=== PATIENT | male | born 1960 | race African-American/Black ===

== ENCOUNTER 2017-12-02 08:13 | Emergency (ER) | payer OTHER ==
[~2017-12-02] VITALS: Ht 172.7 cm; Wt 74.8 kg
--- NOTE | 2017-12-02 08:34 | Emergency Room Report ---
History of Present Illness General Chief Complaint: Headache Source: Patient Present Illness HPI Patient is a 57-year-old male presented after increased headache gradual onset over the past few days. Patient was recently losing his job. The patient been previously followed by [facility]. The patient reports having prior history of hypertension. He denied any fever. Patient stated that he had not been taking any medications. He denies any numbness or weakness. He denies any weight loss. Patient stated he had been feeling somewhat dizzy. The patient is a smoker Allergies: Coded Allergies: No Known Allergies (Unverified , 12/02/17) Patient History Past Medical History: see triage record Reviewed Nursing Documentation: PMH: Agreed, PSxH: Agreed Nursing Documentation-PMH Past Medical History: No Stated History Review of Systems All Other Systems: negative except mentioned in HPI Physical Exam Vital Signs Date Time Temp Pulse Resp B/P (MAP) Pulse Ox O2 Delivery O2 Flow Rate FiO2 12/02/17 08:16 97.9 75 18 148/97 98 Room Air 97.9 Sp02 EP Interpretation: reviewed, normal General Appearance: normal inspection, well appearing, no apparent distress, alert, GCS 15 Head: atraumatic ENT: normal ENT inspection, hearing grossly normal, normal voice Neck: normal inspection, full range of motion, supple, no bony tend Respiratory: normal inspection, lungs clear, normal breath sounds, no respiratory distress, no retraction, no wheezing Cardiovascular #1: regular rate, rhythm, no edema Gastrointestinal: normal inspection, normal bowel sounds, non tender, soft, no guarding, no hernia Genitourinary: no CVA tenderness Musculoskeletal: normal inspection, back normal, normal range of motion Neurologic: normal inspection, alert, oriented x3, responsive, metal framer III-XII nml as tested, speech normal Psychiatric: normal inspection, judgement/insight normal, mood/affect normal Skin: normal inspection, normal color, no rash Medical Decision Making Diagnostic Impression: Primary Impression: Headache ER Course Patient presented for headache. Differential diagnoses included but was not limited to skull fracture, subarachnoid hemorrhage, meningitis, aneurysm, mass lesion, intracranial hemorrhage.The patient was given medications for headache. CT the head read by radiologist showed no acute changes. The patient was noted to have adequate blood pressure. The patient is advised followup with primary care physician for further evaluation and treatment of hypertension. Patient is advised to return if any worsening condition or if any changes in status that are concerning. This report is dictated with [employer] financial analyst accountant software which may occasionally lead to discrepancies related to use of this software. Labs Test 12/02/17 08:55 White Blood Count 7.3 K/UL (4.8-10.8) Red Blood Count 6.19 M/UL (4.70-6.10) Hemoglobin 18.4 G/DL (14.2-18.0) Hematocrit 54.8 % (42.0-52.0) Mean Corpuscular Volume 88 FL (80-99) Mean Corpuscular Hemoglobin 29.7 PG (27.0-31.0) Mean Corpuscular Hemoglobin Concent 33.5 G/DL (32.0-36.0) Red Cell Distribution Width 12.0 % (11.6-14.8) Platelet Count 215 K/UL (150-450) Mean Platelet Volume 6.5 FL (6.5-10.1) Neutrophils (%) (Auto) 69.2 % (45.0-75.0) Lymphocytes (%) (Auto) 21.0 % (20.0-45.0) Monocytes (%) (Auto) 8.5 % (1.0-10.0) Eosinophils (%) (Auto) 0.6 % (0.0-3.0) Basophils (%) (Auto) 0.8 % (0.0-2.0) Urine Color Pale yellow Urine Appearance Clear Urine pH 8 (4.5-8.0) Urine Specific [place] 1.015 (1.005-1.035) Urine Protein Negative (NEGATIVE) Urine Glucose (UA) Negative (NEGATIVE) Urine Ketones Negative (NEGATIVE) Urine Occult Blood 1+ (NEGATIVE) Urine Nitrite Negative (NEGATIVE) Urine Bilirubin Negative (NEGATIVE) Urine Urobilinogen Normal MG/DL (0.0-1.0) Urine Leukocyte Esterase Negative (NEGATIVE) Urine RBC 0-2 /HPF (0 - 0) Urine WBC 0 /HPF (0 - 0) Urine Squamous Epithelial Cells Occasional /LPF Urine Bacteria Occasional /HPF (NONE) Sodium Level 140 MMOL/L (136-145) Potassium Level 4.0 MMOL/L (3.5-5.1) Chloride Level 103 MMOL/L (98-107) Carbon Dioxide Level 32 MMOL/L (21-32) Anion Gap 5 mmol/L (5-15) Blood Urea Nitrogen 14 mg/dL (7-18) Creatinine 1.3 MG/DL (0.55-1.30) Estimat Glomerular Filtration Rate > 60 mL/min (>60) Glucose Level 110 MG/DL (74-106) Calcium Level 9.9 MG/DL (8.5-10.1) Total Bilirubin 0.9 MG/DL (0.2-1.0) Aspartate Amino Transf (AST/SGOT) 30 U/L (15-37) Alanine Aminotransferase (ALT/SGPT) 29 U/L (12-78) Alkaline Phosphatase 64 U/L (46-116) Total Creatine Kinase 425 U/L (26-308) Creatine Kinase MB 3.1 NG/ML (0.0-3.6) Creatine Kinase MB Relative Index 0.7 Troponin I 0.000 ng/mL (0.000-0.056) Pro-B-Type Natriuretic Peptide 14 pg/mL (0-125) Total Protein 8.7 G/DL (6.4-8.2) Albumin 4.3 G/DL (3.4-5.0) Globulin 4.4 g/dL Albumin/Globulin Ratio 1.0 (1.0-2.7) Lipase 161 U/L (73-393) Last Vital Signs Date Time Temp Pulse Resp B/P (MAP) Pulse Ox O2 Delivery O2 Flow Rate FiO2 12/02/17 08:16 97.9 75 18 148/97 98 Room Air 97.9 Status: improved Disposition: HOME, SELF-CARE Condition: Stable Scripts Hydrochlorothiazide* (HYDROCHLOROTHIAZIDE*) 25 Mg Tablet 25 MG ORAL DAILY, #30 TAB Prov: Brandon Dsouza 12/02/17 Brandon Dsouza Dec 02, 2017 08:34
[2017-12-02 09:03] VITALS: BP 137/91
[2017-12-02 09:06] LABS: BASOPHILS % (AUTO) 0.8 % (0.0-2.0); EOSINOPHILS % (AUTO) 0.6 % (0.0-3.0); HEMATOCRIT 54.8 % (42.0-52.0); MEAN CORPUSCULAR VOLUME 88 FL (80-99); MONOCYTES % (AUTO) 8.5 % (1.0-10.0); NEUTROPHILS % (AUTO) 69.2 % (45.0-75.0); PLATELET COUNT 215 K/UL (150-450); RED BLOOD COUNT 6.19 M/UL (4.70-6.10); WHITE BLOOD COUNT 7.3 K/UL (4.8-10.8)
[2017-12-02 09:07] LABS: HEMOGLOBIN 18.4 G/DL (14.2-18.0)
[2017-12-02 09:18] VITALS: BP_SYST 123; BP_SYST 141; BP_SYST 162; BP_DIAS 72; BP_DIAS 83; BP_DIAS 95
[2017-12-02 09:18] LABS: ANION GAP 5 mmol/L (5-15); BLOOD UREA NITROGEN 14 mg/dL (7-18); CALCIUM 9.9 MG/DL (8.5-10.1); CARBON DIOXIDE 32 MMOL/L (21-32); CHLORIDE 103 MMOL/L (98-107); CREATININE 1.3 MG/DL (0.55-1.30); SODIUM 140 MMOL/L (136-145)
--- NOTE | 2017-12-02 09:21 | Diagnostic Imaging Report ---
Indication: Reason For Exam: SOB Technique: One view of the chest Comparison: none Findings: Lungs and pleural spaces are clear. Heart size is normal Impression: No acute process
--- NOTE | 2017-12-02 09:25 | Diagnostic Imaging Report ---
Indication: Headache Technique: Continuous helical CT scanning of the head was performed without intravenous contrast material. Axial and coronal 5 mm sections were generated. Radiation dose was minimized using automated exposure control Dose: Total Dose Length Product - DLP 1379.[address] Dose Index - CTDIvol(s) 70.38 mGy. Comparison: none Findings: The ventricular system is normal in size and configuration. There is no shift of midline structures. No abnormal extra-axial fluid collections are noted. There is no evidence of intracerebral bleeding. No other abnormal high or low density areas are noted within the brain. Intact calvarium. Visualized orbits and sinuses are unremarkable. Impression: Normal CT scan of the head without contrast material. The CT scanner at [facility] is accredited by the [employer] and the scans are performed using protocols designed to limit radiation exposure to as low as reasonably achievable to attain images of sufficient resolution adequate for diagnostic evaluation.
[2017-12-02 09:32] LABS: ALANINE AMINOTRANSFERASE 29 U/L (12-78); ALBUMIN 4.3 G/DL (3.4-5.0); ALKALINE PHOSPHATASE 64 U/L (46-116); ASPARTATE AMINO TRANSFERASE 30 U/L (15-37); BILIRUBIN,TOTAL 0.9 MG/DL (0.2-1.0); CKMB 3.1 NG/ML (0.0-3.6); CREATINE KINASE 425 U/L (26-308)
[2017-12-02] MEDS ORDERED: Acetaminophen 500mg (ES) tab ORAL ONE (10:00)
[2017-12-02] MEDS ORDERED: Ketorolac 30mg Inj IV ONE (10:00)
[2017-12-02] MEDS ORDERED: HYDROCHLOROTHIA25 MG ORAL (10:24)
[2017-12-02 10:48] VITALS: BP 156/97
[2017-12-02 11:38] LABS: APPEARANCE,URINE CLEAR; BILIRUBIN, URINE NEGATIVE (NEGATIVE); COLOR,URINE PALE YELLOW; GLUCOSE, URINE (UA) NEGATIVE (NEGATIVE); KETONES,URINE NEGATIVE (NEGATIVE); LEUKOCYTE ESTERASE ,URINE NEGATIVE (NEGATIVE); NITRITE,URINE NEGATIVE (NEGATIVE); PH,URINE 8 (4.5-8.0); PROTEIN,URINE NEGATIVE (NEGATIVE); UROBILINOGEN,URINE NORMAL MG/DL (0.0-1.0)
--- NOTE | 2017-12-02 14:07 | Cardiology Report ---
APPROVED REPORT EKG Measurement Heart [id number] Normal sinus rhythm with sinus arrhythmia Normal ECG
== END 2017-12-02 10:52 | disposition home or self-care (01) ==
LOC: EMR 09:09
DX: R51 Headache (principal); I10 Essential (primary) hypertension; F17.200 Nicotine dependence, unspecified, uncomplicated; R06.02 Shortness of breath
CPT/HCPCS: 36415; 70450; 71045; 80053; 81003; 82550; 82553; 83690; 83880; 84484; 85025; 93005; 96374; 99284; J1885

== ENCOUNTER 2019-04-24 12:43 | Emergency (ER) | payer SELFPAY ==
[~2019-04-24] VITALS: Ht 172.7 cm; Wt 79.4 kg
[~2019-04-24 12:43] MED LIST: HYDROCHLOROTHIA25 MG ORAL
[2019-04-24 12:49] VITALS: BP 125/88
[2019-04-24] MEDS ORDERED: HYDROcodone/Acetamin 5/325 tab ORAL ONE (13:45)
[2019-04-24] MEDS ORDERED: Isovue-300 100ml vial INJ PRN (13:45)
--- NOTE | 2019-04-24 14:02 | Emergency Room Report ---
History of Present Illness General Chief Complaint: Lower Back Pain or Injury Source: Patient Present Illness HPI 58-year-old male presents to the emergency department complaining of 8 out of 10 severity generalized pain to the posterior lateral left side of the upper back and rib cage status post mechanical fall while at work. Patient reports that he was carrying a heavy object when he fell from the second-story scaffolding onto the first floor. Patient denies hitting his head he denies loss of consciousness and he denies midline neck or back pain. Patient reports bruising to the left posterior ribs. Patient reports pain is exacerbated upon taking deep breaths. Patient denies taking blood thinning medication and denies any significant past medical history. Denies numbness tingling or loss of sensation or gross motor movements of the extremities, incontinence of bowel or bladder. Denies CP, Palpitations, LOC, AMS, dizziness, Changes in Vision, weakness or a sudden severe headache. Allergies: Coded Allergies: No Known Allergies (Unverified , 12/02/17) Patient History Past Medical History: see triage record Past Surgical History: none Pertinent Family History: none Reviewed Nursing Documentation: PMH: Agreed; PSxH: Agreed Nursing Documentation-PMH Past Medical History: No Stated History Review of Systems All Other Systems: negative except mentioned in HPI Physical Exam Vital Signs Date Time Temp Pulse Resp B/P (MAP) Pulse Ox O2 Delivery O2 Flow Rate FiO2 04/24/19 12:49 98.2 81 20 125/88 (100) 95 Room Air Sp02 EP Interpretation: reviewed, normal General Appearance: no apparent distress, alert, GCS 15, non-toxic, mild distress Head: normocephalic, atraumatic Eyes: bilateral eye normal inspection, bilateral eye PERRL ENT: hearing grossly normal, normal voice Neck: full range of motion, no bony tend Respiratory: lungs clear, normal breath sounds, speaking full sentences, other - TTP to the posterior and left lateral rib cage, bruising noted and is moderate. No flail chest, no obvious deformities. Cardiovascular #1: regular rate, rhythm Gastrointestinal: normal bowel sounds, non tender, soft, non-distended, no guarding, other - no bruising noted Rectal: deferred Genitourinary: normal inspection Musculoskeletal: back normal, gait/station normal, normal range of motion, tender - TTP to the posterior and left lateral rib cage, bruising noted and is moderate. No flail chest, no obvious deformities. no midline spinous process TTP. No step-offs. Neurologic: alert, oriented x3, responsive, motor strength/tone normal, sensory intact, speech normal, grossly normal Psychiatric: judgement/insight normal Skin: other - Bruising to the left lateral/posterior rib cage. Lymphatic: no adenopathy Medical Decision Making PA Attestation Dr. Reynolds is my supervising physician whom pt. management has been discussed with. Diagnostic Impression: Primary Impression: Contusion of rib on left side Qualified Codes: S20.212A - Contusion of left front wall of thorax, initial encounter Additional Impression: Back pain Qualified Codes: M54.5 - Low back pain ER Course 58-year-old male presents to the emergency department complaining of 8 out of 10 severity generalized pain to the posterior lateral left side of the upper back and rib cage status post mechanical fall while at work. Patient reports that he was carrying a heavy object when he fell from the second-story scaffolding onto the first floor. Patient denies hitting his head he denies loss of consciousness and he denies midline neck or back pain. Patient reports bruising to the left posterior ribs. Patient reports pain is exacerbated upon taking deep breaths. Patient denies taking blood thinning medication and denies any significant past medical history. Denies numbness tingling or loss of sensation or gross motor movements of the extremities, incontinence of bowel or bladder. Denies CP, Palpitations, LOC, AMS, dizziness, Changes in Vision, weakness or a sudden severe headache. Ddx considered but are not limited to Fracture, dislocation, contusion, Sprain/ Strain/Spasm, Rib contusions, pulmonary contusions, intra-abdominal organ injury just to name a few. Vital signs: are WNL, pt. is afebrile H&PE are most consistent with musculoskeletal injury will perform imaging to r/ o fractures/dislocations. ORDERS: -BMP: normal renal function, pt. is a candidate for IV contrast. - CT Chest/Abdomen and Pelvis W. Contrast - Unremarkable other than incidental findings of bilateral renal cysts and prostatomegaly. ED INTERVENTIONS: - [place] 5mg PO --I d/w this pt. regarding the incidental findings on his CT Imaging. also d/w pt. proper follow up with PCP DISCHARGE: At this time pt. is stable for d/c to home. Will provide printed patient care instructions, and any necessary prescriptions. Care plan and follow up instructions have been discussed with the patient prior to discharge. CT/MRI/US Diagnostic Results CT/MRI/US Diagnostic Results : Imaging Test Ordered: CT chest abdomen pelvis with contrast Impression " Essentially unremarkable exam no evidence of acute bony, soft tissue, or solid organ trauma. Prostatomegaly, bilateral renal cyst, sclerosis and irregularity of the proximal end of the right clavicle." Per official radiology report- Please see report for specific details. Last Vital Signs Date Time Temp Pulse Resp B/P (MAP) Pulse Ox O2 Delivery O2 Flow Rate FiO2 04/24/19 12:49 98.2 81 20 125/88 95 Room Air Status: improved Disposition: HOME, SELF-CARE Condition: Stable Scripts Acetaminophen* (TYLENOL EXTRA STRENGTH*) 500 Mg Tablet 500 MG ORAL Q6H, #30 TAB 0 Refills Prov: Rosa Kapoor 04/24/19 Tramadol Hcl* (ULTRAM*) 50 Mg Tablet 50 MG ORAL Q6H PRN for For Pain, #20 TAB 0 Refills Prov: Rosa Kapoor 04/24/19 Referrals: NOT CHOSEN IPA/MD,REFERRING (PCP) Departure Forms: Return to Work Return to Work Date: Apr 28, 2019 Work Restrictions: No Heavy Lifting Other Restrictions: light duty. May return Sooner if Symptoms have resolved. Return to Full Activity: May 01, 2019 Patient Instructions: Rib Contusion, Back Pain, Adult Additional Instructions: Take medications as directed. Follow up with a Primary Care Provider in 3-5 days, even if your symptoms have resolved. --Please review list of primary care clinics, if you do not already have a primary care provider Return sooner to ED if new symptoms occur, or current symptoms become worse. Do not drink alcohol, drive, or operate heavy machinery while taking Tramadol as this may cause drowsiness. - Please note that this Emergency Department Report was dictated using [employer] driver technology software, occasionally this can lead to erroneous entry secondary to interpretation by the dictation equipment. Rosa Kapoor Apr 24, 2019 14:02
[2019-04-24 14:19] LABS: ANION GAP 12 mmol/L (5-15); BLOOD UREA NITROGEN 11 mg/dL (7-18); CALCIUM 9.3 MG/DL (8.5-10.1); CARBON DIOXIDE 26 MMOL/L (21-32); CHLORIDE 105 MMOL/L (98-107); CREATININE 1.3 MG/DL (0.55-1.30); POTASSIUM 4.2 MMOL/L (3.5-5.1); SODIUM 142 MMOL/L (136-145)
--- NOTE | 2019-04-24 15:28 | Diagnostic Imaging Report ---
CLINICAL INDICATION:Left posterior rib bruising and abdominal pain, pain in the lateral left upper back and rib cage status post fall from second-story scaffolding TECHNIQUE: No oral contrast, per emergency room physician request IV administration nonionic contrast multiphasic spiral acquisitions obtained through the Chest, abdomen, and pelvis. Multiplanar reconstructions were generated. Total dose length product 1283.63 mGycm. CTDIvol(s) 13.58,11.69 mGy. Radiation dose was minimized using automated exposure control COMPARISON: none FINDINGS Chest: Sclerosis and irregularity of the distal end of the right clavicle may reflect prior trauma or degenerative changes. No acute fractures. No dislocations. No rib fractures are demonstrated. No evidence of significant soft tissue contusion. No evidence of pneumothorax or pulmonary parenchymal contusion demonstrated. The lungs and pleural spaces are clear. No infiltrates, effusions, congestion, masses, or nodules. The heart size is normal. No pericardial effusion. No mediastinal or hilar mass or adenopathy. Included thyroid is unremarkable. No axillary or chest wall mass or adenopathy. Abdomen pelvis: The bones are unremarkable except for degenerative changes of the lumbosacral spine. No significant soft tissue contusion demonstrated. No intra-abdominal bleed or hematoma demonstrated. The liver, gallbladder, bile ducts, pancreas, spleen, adrenals are unremarkable. The kidneys demonstrate small bilateral cysts. No retroperitoneal or mesenteric mass or adenopathy. No pelvic mass or adenopathy. The prostate is enlarged, measuring 5.4 cm transverse dimension. It contains calcifications. The appendix is only questionably demonstrated. No findings to suggest acute appendicitis are evident. No evidence of diverticulosis or diverticulitis. No small bowel distention. No free or loculated intraperitoneal gas or fluid is evident. IMPRESSION: Essentially unremarkable exam. No evidence of acute bony, soft tissue, or solid organ trauma Prostatomegaly Bilateral renal cysts Sclerosis and irregularity of the proximal end of the right clavicle. Suspect on the basis of degenerative changes or prior trauma. Correlate with clinical history and findings The CT scanner at [facility] is accredited by the [employer] and the scans are performed using protocols designed to limit radiation exposure to as low as reasonably achievable to attain images of sufficient resolution adequate for diagnostic evaluation.
[2019-04-24] MEDS ORDERED: TRAMADOL HCL50 MG ORAL (15:53)
[2019-04-24] MEDS ORDERED: TYLENOL EXTRA500 MG ORAL (15:53)
[2019-04-24 16:18] VITALS: BP 129/80
--- NOTE | 2019-04-24 16:18 | NUR ---
ER DISCHARGE NOTE: Pt was seen due to low back pain. Patient is cleared to be discharged per PA, pt is aox4, on room air, with stable vital signs. pt was given dc and prescription instructions, pt was able to verbalize understanding, pt id band and iv site removed without complications. pt is able to ambulate with steady gait. pt took all belongings.
== END 2019-04-24 16:18 | disposition home or self-care (01) ==
LOC: EMR 13:22
DX: S20.212A Contusion of left front wall of thorax, initial encounter (principal); M54.5 Low back pain; W17.89XA Other fall from one level to another, initial encounter; Y92.9 Unspecified place or not applicable; Y99.0 Civilian activity done for income or pay; N28.1 Cyst of kidney, acquired; N40.0 Benign prostatic hyperplasia without lower urinary tract symptoms
CPT/HCPCS: 36415; 71260; 74177; 80048; 99284; Q9967